=== PATIENT | female | born 1995 ===

== ENCOUNTER 2017-11-30 12:36 | Outpatient (CLI) | payer OTHER | END 2017-11-30 12:46 | disposition home or self-care (01) | LOC: SONOGRAMA 12:36 → MAMO-SONO 13:15 | DX: N60.11 Diffuse cystic mastopathy of right breast (principal); N60.12 Diffuse cystic mastopathy of left breast ==

== ENCOUNTER 2021-04-01 14:10 | Outpatient (CLI) | payer OTHER | END 2021-04-01 14:30 | disposition home or self-care (01) | LOC: SONOGRAMA 14:10 | PROVIDERS: ATTEND Internal Medicine Gastroenterology | DX: E04.8 Other specified nontoxic goiter (principal) ==

== ENCOUNTER 2021-08-05 12:16 | Outpatient (CLI) | payer OTHER | END 2021-08-05 12:22 | disposition home or self-care (01) | LOC: RAD 12:16 | DX: M99.07 Segmental and somatic dysfunction of upper extremity (principal); M25.531 Pain in right wrist ==